=== PATIENT | male | born 1975 | race Caucasian/White ===

== ENCOUNTER 2021-08-10 15:30 | Outpatient (CLI) | payer OTHER, SELFPAY ==
--- NOTE | ~2021-08-10 | XR_ITS ---
EXAMINATION:[id number] DATE: 08/10/2021 15:56 INDICATION: Left arm pain after lifting a heavy object 1 month prior TECHNIQUE: AP, lateral, lateral swimmers and odontoid views of the cervical spine are provided. COMPARISON: None FINDINGS: Straightening of the normal cervical lordosis. No spondylolisthesis or facet subluxation. Odontoid is intact. Normal atlantoaxial interval. Vertebral body heights are normal. 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 Prevertebral soft tissues are normal. Visualized apices of the lungs are clear. IMPRESSION: 1. Mild spondylosis at C5-C6 and straightening of the normal cervical lordosis which could be positio nal or due to muscle spasm. Reviewed, dictated and finalized at location A. INTERVIEWER IMPRESSION: 1. Mild spondylosis at C5-C6 and straightening of the normal cervical lordosis which could be positional or due to muscle spasm.
== END 2021-08-10 15:31 | disposition home or self-care (01) ==
LOC: ANHIMG 15:37
PROVIDERS: PCP Internal Medicine; Visit Provider Nurse Practitioner
DX: M47.892 Other spondylosis, cervical region (principal)
CPT/HCPCS: 72040